=== PATIENT | female | born 1965 | race Caucasian/White ===

== ENCOUNTER 2017-01-03 14:59 | Emergency (ER) | payer MEDICAID ==
--- NOTE | 2017-01-05 13:11 | ER ---
ADMIT: 01/03/2017 RM/LOC: ER [facility] MR#: [id number] [address] [facility] [address] [place], [place] [address] ALVA BURCH [address] [place] [id number] Emergency Room Report SEX: F AGE: 51 : 1965 DATE: 01/03/2017 ADDENDUM: This patient comes into the ER because she has had vaginal bleeding for the last 2 weeks. It is a spotting, light-type bleeding which is very abnormal. She has had abdominal cramping 2 weeks ago but does not have any cramping at this time. Today, she has used 2 pads. On physical exam, she has no pain and she states the bleeding she has had today has been light. Her CBC and BMP were normal. I explained to the patient she would need to follow with the OB doctor, return to the ER if she has a large amount of bleeding or pain. Please see my T-sheet. ROBERTO Gaffney / Zach Brown MD / sofial JOB #: [id number] CC: Zach Brown MD, Attending Physician Wu Downey MD, Family Physician
== END 2017-01-03 17:21 | disposition home or self-care (01) ==
LOC: ER 14:59
DX: N93.8 Other specified abnormal uterine and vaginal bleeding (principal); I10 Essential (primary) hypertension; E11.9 Type 2 diabetes mellitus without complications; F17.210 Nicotine dependence, cigarettes, uncomplicated; Z79.82 Long term (current) use of aspirin; Z79.4 Long term (current) use of insulin; Z79.899 Other long term (current) drug therapy

== ENCOUNTER → 2017-03-29 | Outpatient (CLI) | payer MEDICAID ==
--- NOTE | 2017-04-07 16:08 | SS ---
ADMIT: 03/29/2017 RM/LOC: [facility] MR#: [id number] [address] [place], [place] [address] ALVA BURCH [address] 11[address] [address] Sleep Study SEX: F AGE: 52 : 1965 STUDY DATE: 03/29/2017 CLINICAL HISTORY: A 52-year-old female, body mass 40.8, 69 inches tall, 276 pounds, in the sleep lab for evaluation of obstructive sleep apnea. The patient has symptoms of snoring, excessive daytime sleepiness, [place] Sleepiness Scale of 19. TECHNICAL DESCRIPTION: Diagnostic polysomnogram performed on night of 03/29/2017, attended by a trained cytotechnologist/histotechnologist. DIAGNOSTIC POLYSOMNOGRAM FINDINGS: SLEEP: Total time bed is 460.5 minutes, total sleep time is 338 minutes, sleep efficiency 82%. 34.1% time was spent in stage II sleep, 20.7% hours spent in stage REM. BREATHING: Mild predominant REM-related obstructive sleep apnea with apnea- hypopnea index of 6. OXYGEN SATURATION: Mean sleeping oxygen saturation 90%, lowest oxygen 85%. CARDIAC: Average heart rate 69 beats per minute. BODY POSITION: During the study, the patient slept in the supine lateral position with no significant leg movements. IMPRESSION AND PLAN: Mild predominant REM-related and positional obstructive sleep apnea with apnea-hypopnea index of 6. Recommend in-lab CPAP titration. Recommend losing weight, avoiding sedatives or alcohol. Refrain from driving if excessively sleepy. Recommend avoiding sleeping in supine position. Clinical correlation needed. CPAP titration is recommended. El Mace MD/ gianna JOB #: [id number] CC: Wu Downey MD, Attending Physician Wu Downey MD, Family Physician Wu Downey MD
== END | disposition home or self-care (01) ==
LOC: RESC 20:30
DX: G47.33 Obstructive sleep apnea (adult) (pediatric) (principal); R06.83 Snoring

== ENCOUNTER → 2017-05-01 | Outpatient (CLI) | payer MEDICAID ==
--- NOTE | 2017-05-06 09:19 | SS ---
ADMIT: 05/01/2017 RM/LOC: [facility] MR#: [id number] [address] [facility] [address] [place], [place] [address] ALVA BURCH [address] 11[address] [address] Sleep Study SEX: F AGE: 52 : 1965 STUDY DATE: 05/01/2017 CLINICAL HISTORY: A 52-year-old female, body mass 41.5, 69 inches tall, 280 pounds, known history of obstructive sleep apnea in the sleep lab for CPAP titration. TECHNICAL DESCRIPTION: CPAP titration performed on night of 05/01/2017, attended by a trained medical technologist chemistry. TITRATION FINDINGS: TITRATION DESCRIPTION: The patient was titrated from 7 cm CPAP to 9 cm of CPAP. A ResMed F10 small mask was used as interface. SLEEP: Time in bed is 445.5 minutes, total sleep time is 419 minutes, sleep efficiency 94.1%. BREATHING: Excellent resolution of obstructive sleep apnea was seen on CPAP 9 cm. The patient was seen in REM sleep in supine position with complete resolution of obstructive events. OXYGEN SATURATION: Mean sleeping oxygen 92%. CARDIAC: Average heart rate 63 beats per minute. BODY POSITION: During the study, patient slept in the supine lateral position with no significant leg movements. IMPRESSION/PLAN: Recommend using CPAP at 9 cm mask as mentioned above. Recommend losing weight, avoiding sedatives and alcohol. Refrain from driving if excessively sleepy. Clinical correlation needed. CPAP compliance followup is recommended. El Mace MD/ gianna JOB #: [id number] CC: Wu Downey MD, Attending Physician Wu Downey MD, Family Physician Wu Downey MD
== END | disposition home or self-care (01) ==
LOC: RESC 20:05
DX: G47.33 Obstructive sleep apnea (adult) (pediatric) (principal)